=== PATIENT | male | born 1965 | race Hispanic/Latino ===

== ENCOUNTER 2018-08-20 03:06 | Emergency (ER) | payer OTHER ==
[2018-08-20] MEDS ORDERED: Lidocaine 2% PF 5 ML VIAL ONE (05:35)
[2018-08-20] MEDS ORDERED: Lidocaine 1% w/Epinephrine 1:100K 20 ML VIAL ONE (05:36)
[2018-08-20] MEDS ORDERED: Adacel (T-DAP) 0.5 ML SYRINGE ONE (06:06)
--- NOTE | 2018-08-20 07:34 | RAD ---
RIGHT KNEE 2 VIEWS: Date: 08/20/18 INDICATION: Concern for splinter in right leg. COMPARISON: None. FINDINGS: There is a 5.6 x 2.0 mm radiopaque foreign body within the soft tissues overlying the anterior and me dial aspect of the vastus medialis obliquus within the subcutaneous fat. No acute fracture is evident . No joint capsular distention is noted. IMPRESSION: Radiopaque foreign body within the soft tissues of the anteromedial distal right thigh, overlying the region of the vastus medialis obliquus. POS: BH
== END 2018-08-20 06:48 | disposition home or self-care (01) ==
LOC: ERS 03:06
DX: S71.141A Puncture wound with foreign body, right thigh, initial encounter (principal); W26.8XXA Contact with other sharp object(s), not elsewhere classified, initial encounter
CPT/HCPCS: 90471; 90715; J2001

== ENCOUNTER 2023-10-13 15:42 | Outpatient (CLI) | payer BC | END 2023-10-13 15:43 | disposition home or self-care (01) | LOC: BICRAD 15:42 | PROVIDERS: ATTEND Family Medicine | DX: S89.92XA Unspecified injury of left lower leg, initial encounter (principal) ==